=== PATIENT | female | born 1970 | race Caucasian/White ===

== ENCOUNTER 2023-10-14 11:42 | Emergency (ER) | payer OTHER ==
[~2023-10-14] VITALS: Ht 162.6 cm; Wt 101.4 kg
[~2023-10-14 11:42] MED LIST: AMLO2.5T2 PO; LEVO75TA PO; LISI40TA13 PO; MET0.75G PO; PARO30TA4 PO; SYN0.088T PO
[2023-10-14] MEDS ORDERED: IBUP-1984 PO (14:01)
[2023-10-14 14:11] VITALS: BP 160/107; PULSE 90; RESP 16; TEMP 98.1; O2SAT 97
== END 2023-10-14 14:18 | disposition home or self-care (01) ==
LOC: ER 11:42
DX: M79.675 Pain in left toe(s) (principal); M79.89 Other specified soft tissue disorders; E03.9 Hypothyroidism, unspecified; Z88.0 Allergy status to penicillin; Z88.1 Allergy status to other antibiotic agents; Z79.899 Other long term (current) drug therapy
CPT/HCPCS: 73630; 99283